=== PATIENT | female | born 1965 | race Caucasian/White ===

== ENCOUNTER → 2016-12-08 | Outpatient (CLI) | payer OTHER | LOC: CIMAGING 08:22 | PROVIDERS: ATTEND Obstetrics & Gynecology Gynecology | DX: Z12.31 Encounter for screening mammogram for malignant neoplasm of breast (principal) | CPT/HCPCS: G0202 ==

== ENCOUNTER → 2017-12-17 | Outpatient (CLI) | payer OTHER | LOC: CIMAGING 10:10 | PROVIDERS: ATTEND Family Medicine | DX: Z12.31 Encounter for screening mammogram for malignant neoplasm of breast (principal); R92.8 Other abnormal and inconclusive findings on diagnostic imaging of breast ==

== ENCOUNTER → 2017-12-28 | Outpatient (CLI) | payer OTHER | LOC: CIMAGING 12:49 | PROVIDERS: ATTEND Family Medicine | DX: R59.0 Localized enlarged lymph nodes (principal) ==